=== PATIENT | female | born 1980 | race Caucasian/White ===

== ENCOUNTER 2016-11-17 10:15 | Inpatient (IN) ==
[2016-11-17] MEDS ORDERED: Famotidine 20 MG/2 ML VIAL IVP PRN (10:20)
[2016-11-17] MEDS ORDERED: Naloxone 0.4 MG/ML INJ IVP PRN (10:20)
[2016-11-17] MEDS ORDERED: Ondansetron 4 MG/2 ML VIAL IVP PRN (10:20)
[2016-11-17] MEDS ORDERED: Ringers Solution, Lactated 1,000 ML IVC SCH (10:30)
--- NOTE | 2016-11-17 10:35 | OB/GYN History & Physical ---
Date of Encounter: 11/17/16 Time of Encounter: 11:40 Assessment and Plan (1) 39 weeks gestation of Current visit: Yes Status: Acute Good movement. Regular contractions every 4 min. - Cytotec. - Flu vaccine. - IV fluids. -Pain management PRN. (2) Polyhydramnios Current visit: Yes Status: Acute Patient is asymptomatic. - Expectant management. Qualifiers: Fetus number: single or unspecified fetus Trimester: third trimester Qualified Code(s): O40.3XX0 - Polyhydramnios, third trimester, not applicable or unspecified History of Present Illness Chief complaint: Labor induction HPI: Ms. Montenegro is a 35 year old female at 39 2/7 wks gestational age with a PMH of hypothyroidism that presents for labor induction. Patient currently has polyhyrdamnios with an BEL of 37. She admits to good movements. Admits to regular contractions once she arrived at the hospital. She denies any vaginal fluid leakage or bleeding. She denies an MOORE, changes in vision, chest pain, nausea, vomiting, fever, dysuria, or diarrhea. Blood type: O+ GBS: negative. HepBSAb: Non-reactive. HIV Ab: Non-reactive. Trep. Pallidum Ab: Negative. Rubella Ab: immune. Varicella Ab: immune. Past Med Surg Social Fam HX - Past Medical History Medical history: thyroid disease Psychiatric history: anxiety - Social History Smoking Status: Former smoker Smokeless Tobacco Status: No Alcohol use: none Drug use: none - Family History Mother Adopted: No Living Status: Still Living Hx Family Cardiac Disorders: Yes (htn) Hx Family Endocrine Disorder: Yes (diabetes) Obstetrical History - Pregnancies : 4 Para: 3 Term: 3 : 0 Ab's: 0 Livin Medications and Allergies Pnv Cmb#21/Iron/Folic Acid [ Complete Caplet] 1 each PO DAILY #30 tablet 04/20/16 [Rx] Famotidine [Pepcid] 1 tab PO BID 11/17/16 [History] Levothyroxine [Synthroid] 1 tab PO DAILY 11/17/16 [History] 3 Allergy/AdvReac Type Severity Reaction Status Date / Time No Known Allergies Allergy Verified 11/17/16 10:52 Exam - Vital Signs Vital signs: BP 135/91 Pulse 84 - Constitutional Constitutional: well developed, no acute distress, obese - HEENT HEENT: EOMI, PERRL, Mucus Membranes Moist - Neck Neck exam: normal inspection, trachea midline - Lungs Respiratory exam: CTAB - Cardiovascular Cardiovascular exam: RRR, +S1, +S2 - Abdomen Abdomen: Present: bowel sounds normal, gravid, non tender - Extremities Extremities exam: normal capillary refill, normal inspection, radial pulses palpable and symmetrical Deep Tendon Reflex Grade: 2+ Normal - Cervix Dilation: 1 Effacement: 50 Station: -3 - Comments Comments: CN II-XII intact. No focal deficits noted. FHR 140 bpm moderate variability +15x15 accels no decels noted. Contractions every 1.5-2 min apart. Discussed POC with patient. [place] catheter placed for IOL. 30cc sterile water placed in [place] balloon. Patient tolerated well. Results Result Diagrams: 11/17/16 10:50 All other labs normal. - VTE Reasons for not Prescribing Prophylaxis: Treatment not Indicated - Low risk for VTE - Attending Attestation I examined this patient and my medical decision-making was reviewed with the Resident Physician. I agree with the documented findings, disposition and treatment plan as described except to the extent set forth below.
[2016-11-17] MEDS ORDERED: FLUARIX QUAD 2017-18 36MOS UP/PF 0.5 ML SYRINGE IM ONE ×2 (10:53→11:15)
[2016-11-17] MEDS ORDERED: miSOPROStol 25 MCG TABLET PO ONE (11:00)
[2016-11-17 11:12] LABS: Basophils % 0.3 %; Eosinophils # 0.1 K/mcL (0.0-0.6); Eosinophils % 0.6 %; Hematocrit 40.7 % (35.3-44.9); Hemoglobin 13.7 g/dL (11.5-15.4); Immature Granulocytes % 0.9 % (0-4); Lymphocytes # 1.7 K/mcL (0.6-4.6); Mean Corpuscular HGB Conc 33.7 g/dL (31.6-35.5); Mean Corpuscular Hemoglobin 28.4 pg (28.0-33.3); Mean Corpuscular Volume 84.4 fL (83.0-100.0); Mean Platelet Volume 9.5 fL (9.4-12.4); Neutrophils # 7.3 K/mcL (1.6-8.9); Platelet Count 179 K/mcL (140-400); Red Blood Count 4.82 M/mcL (3.82-4.97); Red Cell Distribution Width 13.6 % (11.5-14.5); Segmented Neutrophils % 71.2 %
[2016-11-17 11:22] LABS: Amphetamine Screen,Urine Negative ng/mL (Cutoff=1000); Barbiturate Screen,Urine Negative ng/mL (Cutoff=200); Benzodiazepines Screen,Urine Negative ng/mL (Cutoff=200); Cannabinoid Screen,Urine Negative ng/mL (Cutoff = 50); Cocaine Screen,Urine Negative ng/mL (Cutoff= 300); Opiate Screen,Urine Negative ng/mL (Cutoff=300); Phencyclidine Screen,Urine Negative ng/mL (Cutoff=25)
[2016-11-17] MEDS ORDERED: Epidural Premix (fent/bupiv) 110 ML EP ONE ×2 (16:43→23:31)
--- NOTE | 2016-11-17 16:57 | Anesthesia Evaluation PreOp ---
Date of Encounter: 11/17/16 Time of Encounter: 16:00 - Past History Planned Operation: KODI Cardiac History: Denies any Significant Hx Pulmonary History: Denies Any Significant HX AERIAL SPRAYER History: Denies Any Significant HX Other Medical History: Denies Any Significant HX, Thyroid (HYPO) Anesthesia History: No Prior Anesthetic Complications, Past Anesthesia Test: Positive Alcohol Use: none Drug use: none Medications and Allergies Pnv Cmb#21/Iron/Folic Acid [ Complete Caplet] 1 each PO DAILY #30 tablet 04/20/16 [Rx] Famotidine [Pepcid] 1 tab PO BID 11/17/16 [History] Levothyroxine [Synthroid] 1 tab PO DAILY 11/17/16 [History] 3 Allergy/AdvReac Type Severity Reaction Status Date / Time No Known Allergies Allergy Verified 11/17/16 10:52 - Meds/Allergy Pre-op Review Medications Reviewed: Yes Allergies Reviewed: Yes Beta Blockers on Current Med List: No Anesthesia Results - Labs 11/17/16 10:50 Anesthesia Exam - HEENT Pupil (Motor): Pupils equal Mallampati: II Teeth: Normal Oral Opening: Greater than 3 - AERIAL SPRAYER LOC: Oriented AERIAL SPRAYER Motor: Normal RUE, Normal LUE, Normal RLE, Normal LLE, Normal Face AERIAL SPRAYER Sensory: Normal: RUE, LUE, RLE, LLE, Face - Cardiac Rhythm: Regular Murmur: None JVD: No Carotid Bruit: No - Pulmonary Breath Sounds: bilateral Clear Respiratory Effort: Symmetrical Anesthesia Assess/Plan ASA Score: 2 Modified [place] Scale for Level of Consciousness: Cooperative, oriented, and tranquil Anesthetic Plan: Regional Autologous Blood: No Monitoring Plan: Standard Monitors
[2016-11-17] MEDS ORDERED: Epidural Premix (fent/bupiv) 110 ML EP SCH (17:00)
--- NOTE | 2016-11-17 19:08 | OB Labor Progress Note ---
Date of Encounter: 11/17/16 Time of Encounter: 19:05 Labor Progress Note - Subjective Subjective: Patient resting comfortably with epidural in place. Patient denies any pain. [place] catheter draining clear yellow urine. Discussed POC with patient. Patient denies any questions or concerns. - Cervix Cervix: 5/60/-2 - Heart Tones Heart Tones: 150 bpm moderate variability +15x15 accels no decels noted. Cat. 1 tracing - Margaret Margaret: 2-3 min apart - Interventions Interventions: SVE, AROM small amount of clear fluid. Patient tolerated well - Plan Plan: Continue labor management.
--- NOTE | 2016-11-17 20:25 | Anesthesia Procedures ---
Date of Encounter: 11/17/16 Time of Encounter: 17:00 Procedures: Anesthesia - Epidural/Spinal Patient ID/Chart reviewed: Yes Patient examined: Yes OB Eval: Gestational age: 39 OB Eval: : 4 OB Eval: Hx Para: 3 OB Eval: Dilated at (cm): 4 OB Eval: Contractions: Non-stressed pattern Consent Obtained: Yes Supplemental Oxygen: None/Room Air Site Prep: Aseptic Technique, Sterile prep and drape, Povidone-Iodine 1% Patient position: upright Local Anesthetic: Lidocaine 1% Amount of Local Anesthetic used: 3 Touhy Needle Gauge: 18 Touhy Needle Depth (cm): 6 Catheter Depth at Skin (cm): 10 Test Dose (1.5% Lido + Epi): Volume given (mls): 3 Test Dose Result: Negative Loading Dose: Other: premix 10ml Loading Dose Administered: Thru Catheter Infusion Med: 0.125% Bupivacaine w/ 2 mcg/ml Fentanyl Infusion Rate (mls/hr): [address]: Tegaderm, Tape Interspace Used: L3-L4 Loss of Resistance (MARYCHUY): Yes Blood: No CSF: No Paresthesia: No Vitals + FHT's: stable see nursing notes
[2016-11-17] MEDS ORDERED: Oxytocin 20 units/ LR 1000 mL 20 UNIT/1,000 ML BAG IVC SCH (20:45)
--- NOTE | 2016-11-17 20:46 | OB Labor Progress Note ---
Date of Encounter: 11/17/16 Time of Encounter: 20:44 Labor Progress Note - Subjective Subjective: Patient resting comfortably with epidural in place. Discussed POC with patient. Patient denies any questions or concerns. - Cervix Cervix: 5/70/-1 - Heart Tones Heart Tones: 150 bpm moderate variability variable noted. - Lampeter Lampeter: 2-5 min apart - Interventions Interventions: SVE, repositioned. Will start pitocin for effective labor pattern. - Plan Plan: Continue labor management.
[2016-11-18] MEDS ORDERED: *HR* FentaNYL (PF) 100 MCG/2 ML VIAL ONE (05:01)
--- NOTE | 2016-11-18 06:53 | OB/GYN Procedure Note ---
Delivery - Delivery Date: 11/18/16 Provider: Lizett Can Intrapartum events: polyhydramnios Delivery induction: AROM, [place] Delivery augmentation: pitocin Delivery monitor: external FHT, internal uterine Anesthesia: epidural Estimated Blood Loss: 100 - Infant (s) A Infant Delivery Date: 11/22/16 Infant Delivery Time: 06:30 Presentation: vertex Position: MERLIN Gender: Male Viability: Viable Shoulder Dystocia: not encountered Placenta: spontaneous Cord: 3 umbilical vessels - Repair Episiotomy: none - Disposition Mom disposition: stable in LDR disposition: stable in LDR - Comments Comments: 35 y/o now delivered a viable male infant weight 8lbs, 3oz (3710g) @ 0630hrs, delivered MERLIN, nuchal cord x 1 reduced, placenta delivered @ 0639hrs, EBL 100, APGARs 4/9, 1st degree laceration repaired with 3-0 vicryl. Mother and doing well.
[2016-11-18] MEDS ORDERED: Measles/Mumps/Rubella Vacc 0.5 ML VIAL SQ PRN (07:17)
[2016-11-18] MEDS ORDERED: Ibuprofen 600 MG TABLET PO PRN (07:17)
[2016-11-18] MEDS ORDERED: Oxytocin 20 units/ LR 1000 mL 20 UNIT/1,000 ML BAG IVC SCH (07:30)
[2016-11-18] MEDS ORDERED: Prenatal Vit/FA 1 EACH TABLET PO SCH (09:00)
[2016-11-18] MEDS ORDERED: Famotidine 20 MG TABLET PO SCH (21:00)
[2016-11-19 07:16] LABS: Basophils % 0.2 %; Eosinophils # 0.2 K/mcL (0.0-0.6); Eosinophils % 1.4 %; Hematocrit 36.3 % (35.3-44.9); Immature Granulocytes % 0.9 % (0-4); Lymphocytes # 2.6 K/mcL (0.6-4.6); Lymphocytes % 16.4 %; Mean Corpuscular HGB Conc 33.1 g/dL (31.6-35.5); Mean Corpuscular Hemoglobin 28.6 pg (28.0-33.3); Mean Corpuscular Volume 86.4 fL (83.0-100.0); Monocytes # 1.6 K/mcL (0.0-1.3); Monocytes % 9.7 %; Neutrophils # 11.4 K/mcL (1.6-8.9); Platelet Count 171 K/mcL (140-400); Red Cell Distribution Width 13.9 % (11.5-14.5); Segmented Neutrophils % 71.4 %
--- NOTE | 2016-11-19 08:39 | Discharge Summary ---
Date of Encounter: 11/19/16 Time of Encounter: 08:37 - Discharge Diagnosis (1) Status post vaginal delivery Priority: Primary Status: Acute (2) 39 weeks gestation of Priority: Secondary Status: Resolved (3) Polyhydramnios Priority: Secondary Status: Resolved Qualifiers: Fetus number: single or unspecified fetus Trimester: third trimester Qualified Code(s): O40.3XX0 - Polyhydramnios, third trimester, not applicable or unspecified - Discharge Medications Prescriptions: Ibuprofen [Motrin] 600 mg PO Q6HR PRN #60 tablet PRN Reason: Cramping Docusate [Colace] 100 mg PO BID #30 capsule Ferrous Sulfate 325 mg PO DAILY #30 tablet Home Medications: Pnv Cmb#21/Iron/Folic Acid [ Complete Caplet] 1 each PO DAILY #30 tablet 04/20/16 [Rx] Famotidine [Pepcid] 1 tab PO BID 11/17/16 [History] Levothyroxine [Synthroid] 1 tab PO DAILY 11/17/16 [History] Docusate [Colace] 100 mg PO BID #30 capsule 11/19/16 [Rx] Ferrous Sulfate 325 mg PO DAILY #30 tablet 11/19/16 [Rx] Ibuprofen [Motrin] 600 mg PO Q6HR PRN #60 tablet 11/19/16 [Rx] Allergies/Adverse Reactions: 3 Allergy/AdvReac Type Severity Reaction Status Date / Time No Known Allergies Allergy Verified 11/17/16 10:52 Data Procedures and tests throughout hospitalization: Laboratory Tests 11/17/16 11/17/16 11/19/16 10:50 10:50 06:30 WBC 10.3 16.0 H D RBC 4.82 4.20 Hgb 13.7 12.0 D Hct 40.7 36.3 MCV 84.4 86.4 MCH 28.4 28.6 MCHC 33.7 33.1 RDW 13.6 13.9 Plt Count 179 171 MPV 9.5 10.0 Immature Gran % 0.9 0.9 Seg Neutrophils % 71.2 71.4 Lymphocytes % 17.0 16.4 Monocytes % 10.0 9.7 Eosinophils % 0.6 1.4 Basophils % 0.3 0.2 Neutrophils # 7.3 11.4 H Lymphocytes # 1.7 2.6 Monocytes # 1.0 1.6 H Eosinophils # 0.1 0.2 Basophils # 0.0 0.0 Urine Opiates Screen Negative Ur Barbiturates Screen Negative Ur Phencyclidine Scrn Negative Ur Amphetamines Screen Negative U Benzodiazepines Scrn Negative Urine Cocaine Screen Negative U Marijuana (THC) Screen Negative Labs on day of discharge: Labs from last 24 hours 11/19/16 06:30 WBC 16.0 H D RBC 4.20 Hgb 12.0 D Hct 36.3 MCV 86.4 MCH 28.6 MCHC 33.1 RDW 13.9 Plt Count 171 MPV 10.0 Immature Gran % 0.9 Seg Neutrophils % 71.4 Lymphocytes % 16.4 Monocytes % 9.7 Eosinophils % 1.4 Basophils % 0.2 Neutrophils # 11.4 H Lymphocytes # 2.6 Monocytes # 1.6 H Eosinophils # 0.2 Basophils # 0.0 Date of admission: 11/17/16 10:15 Primary care physician: Shelbie Levine Discharging clinician: Carolyn Jacques Anticipated date of discharge: 11/19/16 - Patient Status Disposition: Home, Self-Care Condition: Good Functional capacity at discharge: independent ambulation Overall status at discharge: patient is progressing back to baseline - Discharge Instructions Follow Up With: Shelbie Hdz MD [Primary Care Provider] - - Diet and Activity Activity: increase activity as tolerated Diet: advance to your usual diet Hospital Course Reason for admission: induction of labor Delivery: Episiotomy: none Laceration: 1st degree Other procedures: none complications: none Discharge diagnosis: IUP at term delivered [place] baby: male Hospital course: Ms. Montenegro is a 35 year old female at 39 2/7 wks gestational age with a PMH of hypothyroidism that presented for labor induction. Patient had polyhyrdamnios with an BEL of 37. AROM around 11/17. She was started on pitocin around 11/17. Labor progressed until she was complete. Under maternal effort she delivered a viable male weight 8lbs, 3oz (3710g) @ 0630hrs, delivered MERLIN, nuchal cord x 1 reduced, placenta delivered @ 0639hrs, EBL 100, APGARs 4/9, 1st degree laceration repaired with 3-0 vicryl. Patient received MMR vaccination prior to discharge and will be discharged in stable condition with prescriptions for iron, ibuprofen and colace. Time Attestation: Total time spent providing and/or coordinating discharge services: Time Spent: Less than 30 minutes Exam - Constitutional Vitals: Temp Pulse Resp BP Pulse Ox 98.2 F 74 20 128/72 96 11/19/16 05:10 11/19/16 05:10 11/19/16 05:10 11/19/16 05:10 11/19/16 05:10 General appearance IM: A&O X 3, pleasant, answers questions appropriately - Respiratory Respiratory exam: Present: CTAB. Absent: respiratory distress - Cardiovascular Cardiovascular exam IM: Present: RRR, +S1, +S2. Absent: diastolic murmur, systolic murmur - GI/Abdominal GI/Abdominal exam IM: normal bowel sounds, soft, tenderness - Rectal Rectal exam: deferred - Uterine Tone: Firm Uterus Position: At Umbilicus - Extremities Exam Extremities exam IM: Present: normal capillary refill, normal inspection, radial pulses palpable and symmetrical. Absent: calf tenderness, pedal edema, tenderness - Neurological Exam Neurological exam: alert, oriented X3, no focal deficits, strengths equal and symetr throughout - Attending Attestation I examined this patient and my medical decision-making was reviewed with the Resident Physician. I agree with the documented findings, disposition and treatment plan as described except to the extent set forth below.
[2016-11-19 08:59] VITALS: BP 120/78
[2016-11-19] MEDS ORDERED: FLUARIX QUAD 2017-18 36MOS UP/PF 0.5 ML SYRINGE IM ONE (12:45)
== END 2016-11-19 14:23 | disposition home or self-care (01) | DRG 560 ==
LOC: 1NENULAB 10:15 → 1NENUOBS 11-18 08:18
PROVIDERS: ADMIT Advanced Practice Midwife; ATTEND Student in an Organized Health Care Education/Training Program